=== PATIENT | female | born 1995 | race Caucasian/White ===

== ENCOUNTER 2022-04-10 11:10 | Outpatient (CLI) | payer OTHER, SELFPAY ==
[2022-04-10] MEDS: Lactated Ringers 1,000 ML 125 ML IV (11:25)
[2022-04-10 11:31] VITALS: BMI 37.8
--- NOTE | 2022-04-10 12:09 | OB.TRI.HP_ITS ---
HPI - General General Date of Admission: 04/10/22 Date of Service: 04/10/22 Chief Complaint: breech HPI Narrative YUMIKO MARTINEZ, is a 26 F who presents for attempted ECV due to breech. PFSH PFSH Home Medications vits,calcium no.78-iron fumarate-folic acid 29 mg-1 mg tablet (Prenatabs FA) 1 tab PO DAILY 04/10/22 [History Last Taken 04/09/22] Allergy/AdvReac Type Severity Reaction Status Date / Time nickel Allergy Rash Verified 04/10/22 11:31 NST FHR Rate Baby A Baseline: normal Variability:: Moderate Accelerations:: 15 x 15 Decelerations:: Early (with a prolonged contraction) NST Reactive:: Yes FHR Category:: Category I (for > 20 min befoer d/c) Assessment & Plan (1) 37 weeks gestation of : PLAN: Risk benefits altered is to attempted external cephalic version for breech fetus at term were reviewed with the patient, her questions were answered to her satisfaction and consent was signed. My city carrier assistant was Yoanna Gonzalez CNM. Brief ultrasound was performed which confirmed veronica breech. We attempted a forward roll and were unable to get the breech to unengaged. We then attempted a backwards roll and again cannot get the breech to move enough to get the head to come down. heart tones were checked in between. At the end of the procedure heart tones were stable. Unsuccessful attempted external cephalic version. Discussed with the patient options for scheduling . Elects to schedule 39-week plus unless spontaneous conversion to vertex in interim. Follow-up in the office as scheduled or as needed. NST afterwards. Patient is Rh+. (2) Complete breech:
== END 2022-04-10 13:00 | disposition home or self-care (01) ==
LOC: WPOUT 11:20 → WP 11:21
PROVIDERS: Referring Provider Obstetrics & Gynecology; Visit Provider Obstetrics & Gynecology
DX: O32.1XX0 Maternal care for breech presentation, not applicable or unspecified (principal); O36.8330 Maternal care for abnormalities of the fetal heart rate or rhythm, third trimester, not applicable or unspecified; Z3A.37 37 weeks gestation of pregnancy
CPT/HCPCS: 96360; 59025; 59050; 59412; 76815; 99218; J7120; G0378

== ENCOUNTER 2022-04-16 08:00 | Inpatient (IN) | payer OTHER, SELFPAY ==
[2022-04-16] VITALS (16 sets, daily range): BP systolic 105–141; BP diastolic 59–81; PULSE 76–114; RESP 16–18; TEMP 36.1–36.7; O2SAT 96–99; BMI 37.5
--- NOTE | 2022-04-16 07:38 | HP.PCM.OB_ITS ---
HPI - General HPI Narrative YUMIKO MARTINEZ, is a 26 F at 38.5 weeks gestation who presents with leaking fluid. She felt a gush of fluid last night and was unsure if it was her water breaking but continued to leak clear fluids. Positive movement. Denies any cramps or contractions. She was scheduled this week for a primary maxine arean section for breech presentation. complicated by obesity, and rubella non-immune status. Maternal Data Information ALTAGRCAIA Calculator Estimated Delivery Date Method Current WG Current Estimate 04/25/22 Manual 38w 5d PFSH PFSH Home Medications vits,calcium no.78-iron fumarate-folic acid 29 mg-1 mg tablet (Prenatabs FA) 1 tab PO DAILY 04/10/22 [History Last Taken 04/15/22] Allergy/AdvReac Type Severity Reaction Status Date / Time nickel Allergy Rash Verified 04/16/22 07:28 Social History Smoking Status: Never smoker History Elective abortions Hx Para 0 Spontaneous abortions Hx # Term Pregnancies Ectopic pregnancies Hx # Pregnancies Multiple births # of living children Visit Details OB Flowsheet Initial Weight: Not Recorded Date -?-?-?-?-?-?-?-?-?-?-?-?- EGA Weight BP Urine Prot -?-?-?-?-?-?-?-?-?-?-?-?- Glucose FHR FuHt Pres Dilation -?-?--?-?-?-?-?-?-?-?-?-?- Effaced St Visit Note 04/16/22 -?-?-?-?-?-?-?-?-?-?-?-?- 38w 5d 225 lb 12.054 oz 130/81 -?-?-?-?-?-?-?-?-?-?-?-?- -?-?-?-?-?-?-?-?-?-?-?-?- NST FHR Rate Baby A Baseline: 135 Variability:: Moderate Accelerations:: 15 x 15 Decelerations:: None NST Reactive:: Yes FHR Category:: Category I Uterine Activity:: irritability ROS Eyes Eyes: Denies blurry vision, change in vision or spots in vision ENT HEENT: Denies dizziness or headache(s) Cardiovascular Cardiovascular: Denies abdominal pain, chest pain or dyspnea Respiratory/Chest Respiratory/Chest: Denies cough, dyspnea, shortness of breath at rest or shortness of breath with exertion Gastrointestinal Gastrointestinal: Denies abdominal pain, diarrhea or vomiting Genitourinary Genitourinary: Denies change in urinary stream, difficulty urinating or dysuria Musculoskeletal Musculoskeletal: Reports none Integumentary Integumentary: Denies rash Neurologic Neurologic: Denies dizziness, headache(s), memory loss or weakness Psychiatric Psychiatric: Reports none Vital Signs Vital Signs Vital Signs: 04/16/22 07:25 04/16/22 07:25 04/16/22 07:25 Temperature Temperature Source Pulse Rate 93 Blood Pressure 130/81 H BP Systolic 130 BP Diastolic 81 Pulse Ox 99 04/16/22 07:25 04/16/22 07:25 04/16/22 07:25 Temperature 97.7 F L Temperature Source Temporal Pulse Rate 90 Blood Pressure BP Systolic BP Diastolic Pulse Ox Weight Weight: 225 lb 12.054 oz Body Mass Index (BMI) 37.5 Physical Exam Const alert, oriented x3 and no apparent distress General Appearance: cooperative Orientation / Consciousness: awake Exam Limitations: no limitations HEENT normocephalic Head and Scalp: normal to inspection Eyes General Eye: normal appearance of both eyes Neck full ROM and no lymphadenopathy Lymph Lymphatic: no lymphadenopathy noted Chest inspection of chest normal Resp normal respiratory effort, normal air movement and clear to auscultation bilaterally Effort and Inspection: able to speak in complete sentences and symmetric chest movement Cardio regular rate and regular rhythm GI normal to inspection, nondistended, normoactive bowel sounds Back/Spine normal ROM Extremity full ROM and no calf tenderness Skin no rashes or lesions noted General Skin Exam: no breakdown Neuro oriented x3 and CN's II-XII intact bilaterally Psych mental status grossly normal and thought process normal Labs Labs Labs: No Data to Display A+ Rubella- NON immune HB- neg HC- neg RPR- NR HIV-NR GC/CH- negative Assessment & Plan (1) Nulliparity: (2) 38 weeks gestation of : (3) Complete breech: (4) Spontaneous rupture of amniotic membranes: (5) Rubella non-immune status, antepartum: PLAN: Plan ROM plus- positive TAUS - confirms breech presentation Admit to labor and delivery Routine labs Ancef 2 gm IV x [address] Elliott in route
[2022-04-16 07:57] LABS: ROM Internal Control Test YES-OK TO RESULT pt. (Internal QC)
[2022-04-16 07:58] LABS: ROM Patient Test POSITIVE (Negative)
[2022-04-16] MEDS: Acetaminophen 500 MG Tablet 1000 MG PO ×3 (08:23→20:36)
[2022-04-16] MEDS: Lactated Ringers 1,000 ML 999 ML IV (08:25)
--- NOTE | 2022-04-16 08:25 | PCM.PN.BLA ---
Progress Note Pt seen at bedside. She is doing well. TAUS confirms breech presentation. Reviewed primary section with pt and she desires to proceed. She states will not be present until around 0940 am as he is driving from work, and they desire for him to be present for delivery.
[2022-04-16 08:43] LABS: Absolute Lymphocyte Count 2.71 X10^3/uL (0.83-4.51); Absolute Neutrophil Count 8.8 X10^3/uL (2.0-7.7); Basophil# 0.03 X10^3/uL; Basophil% 0.2 % (0-1); Eosinophil# 0.03 X10^3/uL; Eosinophils% 0.2 % (0-5); Hematocrit 36.8 % (37-47); Hemoglobin 12.6 g/dL (12.0-15.0); Lymphocyte # 2.71 X10^3/ul (0.83-4.51); Lymphocyte % 22.1 % (19-41); Mean Corp Hgb Conc 34.2 g/dL (32-36); Mean Corpuscular Hgb 30.8 pg (27.0-32.0); Mean Platelet Vol. 8.8 fl (6.2-12.0); Monocyte# 0.59 X10^3/uL; Monocyte% 4.8 % (0-10); NRBC Flagged by Analyzer 0 % (0-5); Neutrophil # 8.83 X10^3/uL (2.7-7.7); Neutrophil % 71.9 % (47-70); Platelet Count 214 K/mm3 (150-450); RBC Distribution Width CV 11.9 % (11.6-14.6); RBC Distribution Width SD 38.9 fl (35.1-43.9); Red Blood Count 4.09 M/mm3 (4.2-5.4); White Blood Count 12.3 K/mm3 (4.4-11.0)
[2022-04-16] MEDS: Sodium Citrate/Citric Acid 30 ML UDC PO (09:26)
[2022-04-16] MEDS: Lactated Ringers 1,000 ML 150 ML IV (09:26)
[2022-04-16] MEDS: Cefazolin 2 GM in 0.9% Normal Saline 100 ML IV (09:40)
--- NOTE | 2022-04-16 10:53 | PCM.HP.OB ---
HPI - General General Date of Admission: 04/16/22 Date of Service: 04/16/22 Chief Complaint: breech presentation, SROM HPI Narrative YUMIKO MARTINEZ, is a 26 F who presents at 39 weeks with leaking of fluid. No ctx, vb. Maternal Data Information ALTAGRACIA Calculator Estimated Delivery Date Method Current WG Current Estimate 04/25/22 Manual 38w 5d PFSH PFSH Home Medications vits,calcium no.78-iron fumarate-folic acid 29 mg-1 mg tablet (Prenatabs FA) 1 tab PO DAILY 04/10/22 [History Last Taken 04/15/22] Allergy/AdvReac Type Severity Reaction Status Date / Time nickel Allergy Rash Verified 04/16/22 07:28 Social History Smoking Status: Never smoker History Elective abortions Hx Para 0 Spontaneous abortions Hx # Term Pregnancies Ectopic pregnancies Hx # Pregnancies Multiple births # of living children Vital Signs Vital Signs Vital Signs: 04/16/22 07:25 04/16/22 07:25 04/16/22 07:25 Temperature Temperature Source Pulse Rate 93 Respiratory Rate Blood Pressure 130/81 H Blood Pressure Mean BP Systolic 130 BP Diastolic 81 Blood Pressure Source Blood Pressure Position Blood Pressure Location Pulse Ox 99 Oxygen Delivery Method 04/16/22 07:25 04/16/22 07:25 04/16/22 07:25 Temperature 97.7 F L Temperature Source Temporal Pulse Rate 90 Respiratory Rate Blood Pressure Blood Pressure Mean BP Systolic BP Diastolic Blood Pressure Source Blood Pressure Position Blood Pressure Location Pulse Ox Oxygen Delivery Method 04/16/22 08:52 Temperature 97.7 F L Temperature Source Temporal Pulse Rate 90 Respiratory Rate 18 Blood Pressure 130/81 H Blood Pressure Mean 97 BP Systolic BP Diastolic Blood Pressure Source Monitor Blood Pressure Position Semi-Fowlers Blood Pressure Location Left Arm Pulse Ox 99 Oxygen Delivery Method Room Air Weight Weight: 225 lb 12.054 oz Body Mass Index (BMI) 37.5 Labs Labs Labs: Blood Type A POSITIVE Antibody Screen NEGATIVE Hct 36.8 % (37-47) L Hgb 12.6 g/dL (12.0-15.0)
--- NOTE | 2022-04-16 10:56 | PCM.OPRPT ---
Problems Associated Problem List Diagnoses (1) Complete breech: (2) 39 weeks gestation of : (3) Spontaneous rupture of amniotic membranes: (4) Nulliparity: Report of Operation Date of Procedure: 04/16/22 Pre-Operative Diagnosis: 39 week gestation, single IUP, complete breech presentation, SROM Post-Operative Diagnosis: As above Surgery/Procedure Performed:: PLTCS via pfannenstiel incision Description of Surgical Findings:: Normal appearing uterus, bilateral adnexa. Normal appearing placenta. Vigorous VMI in complete breech presentation. Apgars 9,9. Surgeon: Vickie Elliott oxygen equipment technician: Hermelinda PHILIP Type of Anesthesia: Spinal Special Medications: None Specimen's removed: Placenta Drains: [place] Estimated Blood Loss (mL): 400 Fluids Replaced: 1000 mL Description of Procedure: The patient was taken to the operating room where spinal anesthesia was found to be adequate. She was prepped and draped in the dorsal position with a leftward tilt. A Pfannenstiel skin incision was made with a scalpel and this was carried down to the underlying layer of fascia. The fascia was incised in midline. The fascia was extended bluntly. The fascia was dissected off the rectus muscles using a combination of sharp and blunt dissection. The rectus muscles were midline. The peritoneum was entered bluntly with good visualization of the bladder. The peritoneal incision was extended bluntly. A bladder blade was inserted. A low transverse incision was made on the uterus with a scalpel. The uterine incision was extended bluntly. The buttocks of the infant was brought to the hysterotomy. The buttocks was delivered, followed by the legs and body, followed by the shoulders and the head easily without any force or delay. The head was flexed during delivery. A vigorous and viable male was delivered in complete breech presentation easily through the hysterotomy. The cord was clamped and cut after delay. The was handed off to the awaiting nursery staff. The placenta was removed with manual extraction. The uterus was cleared of all clot and debris. Uterus was exteriorized. The uterine incision was closed in a 2 layer fashion. Using 1-0 Vicryl the uterus was closed in a running locked fashion. A second imbricating layer was performed using 1-0 Vicryl. Bilateral adnexa were normal-appearing. Uterus was placed back into the abdomen. Julio C was placed over the hysterotomy and lower uterine segment. The peritoneum was closed with 3-0 Vicryl in a running fashion. The rectus muscles were hemostatic. The fascia was closed with strata fix in a running fashion. The subcutaneous space was irrigated made hemostatic with Bovie cautery. A 3-0 Vicryl was used to reapproximate the subcutaneous space. 4 Monocryl was used to close the skin in a subcuticular fashion. A dressing was placed. Instrument, sharp, sponge counts were correct and the patient was taken to the recovery in stable condition. Assitant Hermelinda PHILIP was present for the entire case from draping the patient, to delivery of infant, and closure. Grafts/Implants Used: None Complications None Admit VTE Documentation VTE Present on Admission: No VTE Mechan Device Prophylaxis: SCD's
[2022-04-16] MEDS: Oxytocin 30 units/NS 500 ml 30 UNITS/500 ML IV.SOLN 167 UNITS IV (11:20)
[2022-04-16] MEDS: Ketorolac 30 MG/ML Syringe IV ×2 (12:56→18:44)
[2022-04-16] MEDS: 0.9% Saline Lock 10 ML Syringe IV (12:56)
[2022-04-16] MEDS: Lactated Ringers 1,000 ML 100 ML IV (14:15)
--- NOTE | 2022-04-16 14:50 | NURSING ---
Report given to Afshan BAUTISTA, taking over pt and care at this time.
[2022-04-17] MEDS: Ketorolac 30 MG/ML Syringe IV ×2 (01:06→06:37)
[2022-04-17] MEDS: 0.9% Saline Lock 10 ML Syringe IV ×2 (01:06→06:37)
[2022-04-17 01:10] VITALS: BP 106/59; PULSE 75; RESP 17; TEMP 36.7; O2SAT 96
[2022-04-17] MEDS: Acetaminophen 500 MG Tablet 1000 MG PO ×4 (02:38→20:21)
[2022-04-17 04:44] VITALS: BP 114/67; PULSE 71; RESP 16; TEMP 36.4; O2SAT 96
[2022-04-17 05:03] LABS: Hematocrit 30.1 % (37-47); Hemoglobin 10.2 g/dL (12.0-15.0); Mean Corp Hgb Conc 33.9 g/dL (32-36); Mean Corpuscular Hgb 31.1 pg (27.0-32.0); Mean Corpuscular Volume 91.8 fL (81-99); Mean Platelet Vol. 8.6 fl (6.2-12.0); Platelet Count 194 K/mm3 (150-450); RBC Distribution Width CV 11.9 % (11.6-14.6); Red Blood Count 3.28 M/mm3 (4.2-5.4); White Blood Count 20.9 K/mm3 (4.4-11.0)
[2022-04-17 07:48] VITALS: BP 114/73; PULSE 74; RESP 16; TEMP 36.6; O2SAT 97
--- NOTE | 2022-04-17 08:43 | PCM.PN.OB ---
Subjective Subjective Pain well controlled, average lochia. No n/v. Ambulating and running without difficulty Objective Data Objective Data Vital Signs: Vital Signs Temp Pulse Resp BP Pulse Ox O2 Del Method 97.9 F 74 16 114/73 97 Room Air 04/17/22 07:48 04/17/22 07:48 04/17/22 07:48 04/17/22 07:48 04/17/22 07:48 04/17/22 07:48 Oxygen Delivery Method Room Air Weight: 102.4 kg Body Mass Index (BMI) 37.5 Intake & Output: Intake and Output for Last 24 Hours 04/15/22 04/16/22 04/17/22 23:59 23:59 23:59 Intake Total 3336.25 / 3336.25 Output Total 1625 / 1625 500 / 500 Balance 1711.25 / 1711.25 -500 / -500 Lab / Micro Data Result Diagrams: 04/17/22 04:56 Labs: Laboratory Results - last 24 hr 04/16/22 08:19: WBC 12.3 H, RBC 4.09 L, Hgb 12.6, Hct 36.8 L, MCV 90.0, MCH 30.8, MCHC 34.2, RDW Std Deviation 38.9, RDW Coeff of Suha 11.9, Plt Count 214, MPV 8.8, Immature Gran % (Auto) 0.800, Neut % (Auto) 71.9 H, Lymph % (Auto) 22.1, Blount % (Auto) 4.8, Eos % (Auto) 0.2, Baso % (Auto) 0.2, Absolute Neuts (auto) 8.8 H, Absolute Lymphs (auto) 2.71, Nucleated RBC % 0 04/16/22 08:19: Blood Type A POSITIVE, Antibody Screen NEGATIVE 04/17/22 04:56: WBC 20.9 H, RBC 3.28 L, Hgb 10.2 L, Hct 30.1 L, MCV 91.8, MCH 31.1, MCHC 33.9, RDW Std Deviation 40.0, RDW Coeff of Suha 11.9, Plt Count 194, MPV 8.6 Micro: Microbiology 04/16/22 08:19 Nasal Secretion SARS-CoV-2 Antigen (Rapid) - Final Physical Exam Const alert General Appearance: cooperative GI GI Narrative: soft, moderate distention, fundus firm, appropriately tender. Abdominal bandage clean dry and intact Assessment & Plan (1) deliv NOS-unsp: PLAN: Postoperative day #1 status post primary section at 38-5/7 weeks gestation for spontaneous rupture membranes and complete breech presentation. Patient is doing well. Working on breast-feeding. is doing well. Routine care and likely discharge home tomorrow. Postop hemoglobin is stable and appropriate for blood loss during surgery
[2022-04-17] MEDS: Ibuprofen 600 MG Tablet PO ×2 (13:17→18:31)
[2022-04-17] MEDS: Senna/Docusate Sodium 1 Tablet PO (13:18)
[2022-04-17 14:20] VITALS: BP 117/62; PULSE 89; RESP 16; TEMP 36.4
[2022-04-17 21:00] VITALS: BP 118/70; PULSE 82; RESP 16; TEMP 36.6; O2SAT 96
[2022-04-18] MEDS: Ibuprofen 600 MG Tablet PO ×2 (00:59→06:12)
[2022-04-18 01:13] VITALS: BP 115/77; PULSE 81; RESP 16; TEMP 36.3; O2SAT 100
[2022-04-18] MEDS: Acetaminophen 500 MG Tablet 1000 MG PO ×2 (02:49→08:55)
--- NOTE | 2022-04-18 08:24 | PCM.PROGNOTE ---
Subjective Subjective patient seen at bedside, doing well. Patient reports good pain control. lochia mild. breast feeding well. passing flatus +BM, + voiding w/o difficulty. Objective Data Objective Data Vital Signs: Vital Signs Temp Pulse Resp BP Pulse Ox O2 Del Method 97.3 F L 81 16 115/77 100 Room Air 04/18/22 01:13 04/18/22 01:13 04/18/22 01:13 04/18/22 01:13 04/18/22 01:13 04/18/22 01:13 Oxygen Delivery Method Room Air Weight: 102.4 kg Body Mass Index (BMI) 37.5 Intake & Output: Intake and Output for Last 24 Hours 04/16/22 04/17/22 04/18/22 23:59 23:59 23:59 Intake Total 3336.25 / 3336.25 Output Total 1625 / 1625 500 / 500 Balance 1711.25 / 1711.25 -500 / -500 Lab / Micro Data Result Diagrams: 04/17/22 04:56 Micro: Microbiology 04/16/22 08:19 Nasal Secretion SARS-CoV-2 Antigen (Rapid) - Final Physical Exam Narrative abd: soft, non distended. Fundus firm. Dressing dry and intact. Const alert and oriented x3 General Appearance: cooperative HEENT normocephalic Neck General: normal visual inspection GI soft to palpation and non-distended GI Narrative: Fundus firm Extremity normal to inspection and no calf tenderness Skin no rashes or lesions noted Neuro oriented x3 and CN's II-XII intact bilaterally Psych mental status grossly normal Assessment & Plan Assessment/Plan (1) deliv NOS-unsp: PLAN: Plan POD# 2 , Doing well Routine care pain mgmt monitor VS ambulation dc home today - dc instructions reviewed
--- NOTE | 2022-04-18 08:26 | DCINST_ITS ---
Discharge Instructions Diet Discharge Diet: No restrictions Activity May resume sexual activity in: 6-8 weeks Dressing / Incision Call your doctor if your incision/area has: Continuous Slow Oozing, Sudden Increased Bleeding, Increased Pain/ Swelling, Increased Redness, Foul Smelling Discharge and Swelling at the incision site Call your doctor if you observe: Fever of 101 or Higher, Inability to urinate, Using more than 1 pad per hour and Uncontrolled pain Additional Dressing/Incision Instructions:: remove dressing at 7 days post op- if it becomes saturated prior to that time you may remove it. Let soap and water run over incision sites and dab dry. keep incision clean and dry. Follow Up Care Please Follow Up With: Marcy Live MD Test Results: Test results from this visit will be discussed in further detail at your follow- up appointment, if applicable. Discharge Plan Admission Admit Date/Time: 04/16/22 08:00 Attending Provider: Vickie Elliott Primary Care Provider: Care Physician,Karissa Primary Discharge Orders/Prescriptions Prescriptions: New acetaminophen 500 mg Tablet 1,000 mg PO Q6H Qty: 0 0RF ibuprofen 600 mg Tablet 600 mg PO Q6H Qty: 0 0RF Continued Prenatabs FA 29-1 mg Tablet 1 tab PO DAILY Referrals / Follow Up: Care Physician,No Primary [Primary Care Provider] - Disposition Disposition (needs filled in before D/C Order can be placed): Home, Self Care
--- NOTE | 2022-04-18 08:26 | DCINST_ITS ---
Discharge Instructions Procedure Diet Discharge Diet: No restrictions Activity May resume sexual activity in: 6-8 weeks Lifting Restrictions: 25 Dressing / Incision Call your doctor if your incision/area has: Continuous Slow Oozing, Sudden Increased Bleeding, Increased Pain/ Swelling, Increased Redness, Foul Smelling Discharge and Swelling at the incision site Call your doctor if you observe: Fever of 101 or Higher, Inability to urinate, Using more than 1 pad per hour and Uncontrolled pain Additional Dressing/Incision Instructions:: remove dressing at 7 days post op- if it becomes saturated prior to that time you may remove it. Let soap and water run over incision sites and dab dry. keep incision clean and dry. Follow Up Care Please Follow Up With: Marcy Live MD When: 1-2 weeks post of incision check and again at 6 weeks post . [phone] Test Results: Test results from this visit will be discussed in further detail at your follow- up appointment, if applicable. Discharge Plan Admission Admit Date/Time: 04/16/22 08:00 Attending Provider: Vickie Elliott Primary Care Provider: Care Physician,Karissa Primary Discharge Orders/Prescriptions Prescriptions: No Action Prenatabs FA 29-1 mg Tablet 1 tab PO DAILY Referrals / Follow Up: Care Physician,Karissa Primary [Primary Care Provider] -
--- NOTE | 2022-04-18 08:28 | PCM.DC.BLA ---
Discharge Summary Date of Admission: 04/16/22 Date of Discharge: 04/18/22 Summary: Patient at 38 weeks gestation presented to labor and delivery on April 16, 2020 with spontaneous rupture membranes breech presentation. Patient underwent a primary low-transverse section by Dr. Vickie Elliott. She had an uncomplicated postoperative course and was discharged home in stable condition on postoperative day #2 on April 18, 2022 Meaningful Use Info Meaningful Use Diagnoses (Choose all that apply): None applicable Discharge Plan Admission Admit Date/Time: 04/16/22 08:00 Attending Provider: Vickie Elliott Primary Care Provider: Care Physician,Karissa Primary Discharge Orders/Prescriptions Prescriptions: New acetaminophen 500 mg Tablet 1,000 mg PO Q6H Qty: 0 0RF ibuprofen 600 mg Tablet 600 mg PO Q6H Qty: 0 0RF Continued Prenatabs FA 29-1 mg Tablet 1 tab PO DAILY Referrals / Follow Up: Care Physician,No Primary [Primary Care Provider] - Disposition Disposition (needs filled in before D/C Order can be placed): Home, Self Care
[2022-04-18 09:01] VITALS: BP 110/72; PULSE 75; RESP 15; TEMP 36.6; O2SAT 97
== END 2022-04-18 11:30 | disposition home or self-care (01) | DRG 788 ==
LOC: WPOUT 08:01 → WP 09:34
PROVIDERS: Admitting Provider Obstetrics & Gynecology; Visit Provider Obstetrics & Gynecology
DX: O32.1XX0 Maternal care for breech presentation, not applicable or unspecified (principal); O99.214 Obesity complicating childbirth; O42.92 Full-term premature rupture of membranes, unspecified as to length of time between rupture and onset of labor; Z37.0 Single live birth; Z3A.39 39 weeks gestation of pregnancy; Z28.310 Unvaccinated for COVID-19; Z28.9 Immunization not carried out for unspecified reason; Z23 Encounter for immunization
CPT/HCPCS: 59025; 59050; 76815; 84112; 85025; 85027; 86850; 86900; 86901; 87426; 99218; J7120; A4216; G0378; J2405